=== PATIENT | female | born 1975 | race Caucasian/White ===

== ENCOUNTER 2020-07-26 15:20 | Emergency (ER) | payer OTHER ==
[~2020-07-26] VITALS: Ht 162.6 cm; Wt 59.0 kg
[2020-07-26 15:33] VITALS: BP 137/74
--- NOTE | 2020-07-26 15:41 | NUR ---
CHERI GREENE evaluating pt at bedside
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
[2020-07-26] MEDS ORDERED: MORPHINE SULFATE 4 MG/ML SYR IM ONE (15:50)
--- NOTE | 2020-07-26 15:56 | NUR ---
TO XRAY VIA W/C
[2020-07-26 17:00] VITALS: BP 137/74
--- NOTE | 2020-07-26 18:28 | NUR ---
Patient discharged with v/s stable. Written and verbal after care instructions given and explained. Patient alert, oriented and verbalized understanding of instructions. Ambulatory with steady gait. All questions addressed prior to discharge. ID band removed. Patient advised to follow up with PMD. Rx of NORCO & VOLTAREN given. Patient educated on indication of medication including possible reaction and side effects. Opportunity to ask questions provided and answered.
== END 2020-07-26 18:28 | disposition home or self-care (01) ==
LOC: MED 15:20
DX: M54.2 Cervicalgia (principal); M54.9 Dorsalgia, unspecified
CPT/HCPCS: 72050; 72072; 72110; 81002; 81025; 99284; J2270

== ENCOUNTER 2020-10-24 11:09 | Emergency (ER) | payer OTHER ==
[~2020-10-24] VITALS: Ht 160 cm; Wt 65.8 kg
[2020-10-24 11:14] VITALS: BP 160/96
--- NOTE | 2020-10-24 11:18 | NUR ---
Patient ambulated to bed 12 with assistance. RN evaluating the patient at bedside.
--- NOTE | 2020-10-24 11:35 | NUR ---
45 Y/O F C/O LEFT FOOT DIGIT PAIN / THAT STARTED LAST NIGHT AFTER SHE STATED SHE INJURED IT. TOOK TWO PO TABS OF OTC TYLENOL FOR PAIN, NO RELIEF. UNABLE TO BEAR WEIGHT OR FLEX/EXTEND L FOOT. PT TSTAES PAIN ISNT RADIATING ANYWHERE ELSE, VISIBLE BRUISING ON LEFT FOOT. LMP 09/25/20. LAST BM WAS YESTERDAY, NORMAL AND EASY TO PASS. PMH: STOMACH ULCERS. DENIES ANY SOB, COUGH, CHEST PAIN, OR CONTACT WITH ANYONE POSITIVE FOR COVID.
--- NOTE | 2020-10-24 11:49 | NUR ---
XRAY AT BEDSIDE
[2020-10-24] MEDS ORDERED: ONDANSETRON 4 MG ODT PO ONE (12:05)
[2020-10-24] MEDS ORDERED: HYDROcodone/APAP 5/325 MG 1 TAB TAB PO ONE (12:05)
--- NOTE | 2020-10-24 12:28 | NUR ---
Amara garcia in ED - 10/24/20 at 1228 by MEDR Patient discharged with v/s stable. Written and verbal after care instructions given and explained. Patient verbalized understanding. Ambulatory with steady gait. All questions addressed prior to discharge. Advised to follow up with PMD.
[2020-10-24 12:50] VITALS: BP 160/96
--- NOTE | 2020-10-24 12:51 | NUR ---
Patient discharged with v/s stable. Written and verbal after care instructions given and explained. Patient alert, oriented and verbalized understanding of instructions. Ambulatory with steady gait. All questions addressed prior to discharge. ID band removed. Patient advised to follow up with PMD. Rx of NORCO AND ZOFRAN given. Patient educated on indication of medication including possible reaction and side effects. Opportunity to ask questions provided and answered. CD WAS GIVEN WITH TWO RN SIGNATURES, PT INFORMED TO GO SEE FOOT AND TAKE CD WITH HER FOR TX.
== END 2020-10-24 12:51 | disposition home or self-care (01) ==
LOC: MED 11:09
DX: S92.592A Other fracture of left lesser toe(s), initial encounter for closed fracture (principal); W17.89XA Other fall from one level to another, initial encounter; Y93.89 Activity, other specified; Y92.89 Other specified places as the place of occurrence of the external cause; Y99.8 Other external cause status
CPT/HCPCS: 73630; 99283; Q0162

== ENCOUNTER 2020-10-26 16:42 | Emergency (ER) | payer OTHER ==
[~2020-10-26] VITALS: Ht 162.6 cm; Wt 59.0 kg
--- NOTE | 2020-10-26 16:44 | NUR ---
W/C ASSISTED TO BED 12
[2020-10-26 16:46] VITALS: BP 136/83
[2020-10-26] MEDS: KETOROLAC 30 MG/ML VIAL IM ONE (17:02)
--- NOTE | 2020-10-26 17:03 | NUR ---
Received care of 45 y/o female coming from home c/o rectal pain. Pt broke a toe, was RX with Troy, experiencing constipation after taking Troy.
--- NOTE | 2020-10-26 17:04 | NUR ---
Pt unable to give urine sample prior to administration of Toradol. Pt states she ahd tubal ligation years ago, can't be . S[employer] Eusebio notified, cleared pt for Toradol admin, considering pt's age.
[2020-10-26] MEDS: ONDANSETRON 4 MG/2 ML VIAL IVP ONE (18:00)
[2020-10-26] MEDS: MORPHINE SULFATE 4 MG/ML SYR IVP ONE (18:00)
[2020-10-26 18:09] LABS: BASOPHILS # (AUTO) 0.1 K/uL (0.00-0.22); BASOPHILS % (AUTO) 0.3 % (0.0-2.0); EOSINOPHILS % (AUTO) 0.2 % (0.0-4.0); HEMATOCRIT 36.3 % (36-48); HEMOGLOBIN 12.3 g/dL (12.0-16.0); LYMPHOCYTES # (AUTO) 0.9 K/uL (2.5-16.5); MEAN CORPUSCULAR HEMOGLOBIN 31 pg (27-31); MEAN CORPUSCULAR HGB CONC 34 g/dL (33-37); MEAN CORPUSCULAR VOLUME 90.8 fL (80-94); MONOCYTES % (AUTO) 5.5 % (1.7-9.3); NEUTROPHILS # (AUTO) 16.6 K/uL (1.8-7.7); PLATELET COUNT (AUTO) 324 K/uL (140-450); RED CELL DISTRIBUTION WIDTH 13.6 % (11.6-13.7); WHITE BLOOD COUNT (AUTO) 18.7 K/uL (4.8-10.8)
[2020-10-26 18:19] LABS: ALBUMIN 3.7 g/dL (3.4-5.0); ANION GAP 13.1 (8-16); CARBON DIOXIDE 24.8 mmol/L (21-32); CREATININE 0.6 mg/dL (0.6-1.3); POTASSIUM 3.9 mmol/L (3.5-5.1); TOTAL BILIRUBIN 0.2 mg/dL (0.0-1.0)
[2020-10-26] MEDS ORDERED: cefTRIAXone 1,000 MG VIAL ONE (19:01)
[2020-10-26] MEDS: NACL 0.9% 1,000 ML IV ONE (19:04)
--- NOTE | 2020-10-26 19:24 | NUR ---
HAND-OFF REPORT GIVEN TO JOSE CARLOS ARREDONDO FOR CONTINUATION OF NURSING CARE
--- NOTE | 2020-10-26 19:24 | NUR ---
RECEIVED TRANSFER OF CARE FROM ANN ARREDONDO FOR CONTINUATION OF CARE.
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
--- NOTE | 2020-10-26 19:31 | NUR ---
PT RETURN FROM CT
--- NOTE | 2020-10-26 20:17 | NUR ---
NON-SKID SOCKS APPLIED. PT AMBULATED TO RESTOOM WITH ASSISTANCE.
--- NOTE | 2020-10-26 20:25 | NUR ---
PT AMBULATED BACK TO BED FROM RESTROOM WITH ASSISTANCE.
[2020-10-26 21:10] VITALS: BP 136/86
[2020-10-26] MEDS: SODIUM PHOSPHATE 118 ML ENEM RC STA (21:12)
--- NOTE | 2020-10-26 21:12 | NUR ---
Patient discharged with v/s stable. Written and verbal after care instructions given and explained. Patient alert, oriented and verbalized understanding of instructions. Ambulatory with ASSISTANCE to car. All questions addressed prior to discharge. ID band removed. Patient advised to follow up with PMD. Rx of GNP MILK OF MAGNESIA, FLEET DISPOSABLE RECTAL ENEMA, AND AUGMENTIN given. Patient educated on indication of medication including possible reaction and side effects. Opportunity to ask questions provided and answered.
--- NOTE | 2020-10-26 21:12 | NUR ---
IV removed, catheter intact and site benign. Applied folded 4x4 gauze and tape to stop bleeding.
== END 2020-10-26 21:10 | disposition home or self-care (01) ==
LOC: MED 16:42
DX: K62.89 Other specified diseases of anus and rectum (principal); K59.00 Constipation, unspecified
CPT/HCPCS: 36415; 74018; 74177; 80053; 83690; 85025; 96365; 96372; 96375; 99285; J0696; J1885; J2270; J2405; J7030; J7060; Q9967

== ENCOUNTER 2022-04-30 13:57 | Emergency (ER) | payer OTHER ==
[~2022-04-30] VITALS: Ht 162.6 cm; Wt 65.8 kg
[2022-04-30 14:00] VITALS: BP 131/99
--- NOTE | 2022-04-30 14:10 | NUR ---
C/O 06/20 R FOOT PAIN S/P FALL X LAST NIGHT. PMH: STOMACH ULCER, MIGRAINE
[2022-04-30] MEDS ORDERED: KETOROLAC 30 MG/ML VIAL IM ONE (15:15)
--- NOTE | 2022-04-30 15:31 | NUR ---
PT PLACED IN FABRICATED ORTHO-GLASS RIGHT SHORT LEG SPLINT, WRAPPED WITH 3" OSCAR WRAPS X3. CMS WNL BEFORE AND AFTER. PT ALSO GIVEN CRUTHCES THAT WERE ADJUSTED TO PT'S SIZE AND HIEGHT AND PT SHOWED PROPER DEMONSTRAION ON HOW TO USE CRUTCHES. PT HAD NO FURTHER QUESTIONS.
[2022-04-30] MEDS ORDERED: ACET-8386 PO (15:36)
[2022-04-30] MEDS ORDERED: IBUP-2213 PO (15:36)
[2022-04-30 15:40] VITALS: BP 120/88
--- NOTE | 2022-04-30 15:40 | NUR ---
Patient discharged with v/s stable. Written and verbal after care instructions given and explained. Patient alert, oriented and verbalized understanding of instructions. Ambulatory with CRUTCHES. All questions addressed prior to discharge. ID band removed. Patient advised to follow up with PMD. Rx of NORCO& MOTRIN given. Patient educated on indication of medication including possible reaction and side effects. Opportunity to ask questions provided and answered.
== END 2022-04-30 15:40 | disposition home or self-care (01) ==
LOC: MED 13:57
DX: S92.351A Displaced fracture of fifth metatarsal bone, right foot, initial encounter for closed fracture (principal); G43.909 Migraine, unspecified, not intractable, without status migrainosus; K25.9 Gastric ulcer, unspecified as acute or chronic, without hemorrhage or perforation; X58.XXXA Exposure to other specified factors, initial encounter; Y93.89 Activity, other specified; Y92.89 Other specified places as the place of occurrence of the external cause; Y99.8 Other external cause status
CPT/HCPCS: 29515; 73630; 96372; 99283; J1885

== ENCOUNTER 2023-08-18 13:18 | Inpatient (IN) | payer OTHER ==
[~2023-08-18] VITALS: Ht 162.6 cm; Wt 61.2 kg
[~2023-08-18 13:18] MED LIST: ACET-8905 PO; IBUP-2213 PO
[2023-08-18 13:39] VITALS: BP 151/97; PULSE 85; RESP 20; TEMP 99.6; O2SAT 97
[2023-08-18] MEDS ORDERED: KETOROLAC 30 MG/ML VIAL IVP ONE (13:50)
[2023-08-18] MEDS ORDERED: NACL 0.9% 1,000 ML IV SCH (13:50)
[2023-08-18] MEDS ORDERED: ONDANSETRON 4 MG/2 ML VIAL IVP ONE ×2 (13:50→16:20)
[2023-08-18 14:12] LABS: HEMATOCRIT 42.3 % (36-48); HEMOGLOBIN 14.5 g/dL (12.0-16.0); MEAN CORPUSCULAR HEMOGLOBIN 29 pg (27-31); MEAN CORPUSCULAR HGB CONC 34 g/dL (33-37); MEAN CORPUSCULAR VOLUME 85.7 fL (80-94); PLATELET COUNT (AUTO) 448 K/uL (140-450); RED BLOOD CELL COUNT(AUTO) 4.94 MIL/uL (4.20-5.40)
[2023-08-18 14:15] LABS: APPEARANCE,URINE CLEAR (CLEAR); BILIRUBIN,URINE 1+ (NEGATIVE); BLOOD, URINE 1+ (NEGATIVE); COLOR,URINE YELLOW (YELLOW); LEUKOCYTE ESTERASE ,URINE NEGATIVE (NEGATIVE); NITRITE, URINE NEGATIVE (NEGATIVE); PROTEIN,URINE 3+ (NEGATIVE); UGLUCOSE NEGATIVE (NEGATIVE); UROBILINOGEN,URINE 0.2 EU/dL (0.2 - 1)
[2023-08-18 14:18] LABS: WHITE BLOOD COUNT (AUTO) 27.8 K/uL (4.8-10.8)
[2023-08-18 14:20] LABS: CALCIUM 8.9 mg/dL (8.5-10.1); CARBON DIOXIDE 20.7 mmol/L (21-32)
[2023-08-18 14:22] LABS: POTASSIUM 2.7 mmol/L (3.5-5.1)
[2023-08-18] MEDS ORDERED: KCL 20 MEQ IN 100 mL PREMIX 200 ML IV ONE (14:25)
[2023-08-18 14:26] LABS: ALBUMIN 4.2 g/dL (3.4-5.0); BILIRUBIN,DIRECT 0.1 mg/dL (0.0-0.3); TOTAL BILIRUBIN 0.6 mg/dL (0.0-1.0); TOTAL PROTEIN, SERUM 8.7 g/dL (6.4-8.2)
[2023-08-18 14:30] LABS: BASOPHILS % (MANUAL) 0 % (0-2); BLASTS, MANUAL % 0 % (0-0); EOSINOPHILS % (MANUAL) 0 % (0-4); LYMPHOCYTES % (MANUAL) 9 % (20-46); METAMYELOCYTES % 0 % (0-0); MONOCYTES % (MANUAL) 10 % (5-12); MYELOCYTES % 0 % (0-0); OTHER CELLS,MANUAL % 0 (0-0); PROMYELOCYTES % 0 % (0-0)
[2023-08-18 14:31] LABS: PLATELET ESTIMATE INCREASED
[2023-08-18] MEDS ORDERED: MORPHINE SULFATE 4 MG/ML SYR IVP ONE (14:35)
[2023-08-18 15:06] LABS: LACTIC ACID 2.6 mmol/L (0.4-2.0)
[2023-08-18 16:03] LABS: BACTERIA,URINE 2+ /HPF (None Seen); RBC,URINE 0-5 /HPF (0-5); SQUAMOUS EPITHELIAL CELL,UR 4-10 (MOD) /LPF (0-3 (FEW)); WBC,URINE 0-5 /HPF (0-5)
[2023-08-18] MEDS ORDERED: MORPHINE SULFATE 2 MG/ML SYR IVP STA (16:17)
[2023-08-18] MEDS ORDERED: VANCOMYCIN 1,000 MG in DEXTROSE 5% 250 ML IV ONE (16:45)
[2023-08-18] MEDS ORDERED: PIPERACILLIN/TAZOBACTAM 3.375 GM in DEXTROSE 5% 50 ML IV ONE (16:45)
[2023-08-18] MEDS ORDERED: NACL 0.9% 1,000 ML IV ONE (16:45)
[2023-08-18 16:48] LABS: FLU A ANTIGEN negative (NEGATIVE); FLU B ANTIGEN NEGATIVE (NEGATIVE)
[2023-08-18] MEDS ORDERED: METOCLOPRAMIDE 10 MG/2 ML INJ VIAL IVP ONE (17:05)
[2023-08-18] MEDS ORDERED: diphenhydrAMINE 50 MG/ML VIAL IVP ONE (17:05)
[2023-08-18] MEDS ORDERED: PIPERACILLIN/TAZOBACTAM 3.375 GM VIAL IV ONE (17:20)
[2023-08-18] MEDS ORDERED: OXYB5TAB44 PO (17:59)
[2023-08-18] MEDS ORDERED: MELO-174 PO (17:59)
[2023-08-18] MEDS ORDERED: LORA10TA19 PO (17:59)
[2023-08-18] MEDS ORDERED: ACETAMINOPHEN 325 MG TAB PO PRN (18:25)
[2023-08-18] MEDS ORDERED: VANCOMYCIN PER PHARMACY MC PRN (18:25)
[2023-08-18] MEDS ORDERED: MAG SULF 2000 MG/WATER PREMIX 50 ML IV PRN (18:25)
[2023-08-18] MEDS ORDERED: MAGNESIUM OXIDE 400 MG TAB PO PRN (18:25)
[2023-08-18] MEDS ORDERED: VANCOMYCIN 1,000 MG VIAL ONE (18:30)
[2023-08-18 19:31] VITALS: O2SAT 98
[2023-08-18] MEDS: ONDANSETRON 4 MG/2 ML VIAL IVP PRN (20:50)
[2023-08-18 22:24] VITALS: BP 149/82; PULSE 59; PULSE 60; RESP 18; TEMP 99.9; O2SAT 97; O2SAT 99
[2023-08-18] MEDS ORDERED: cefTRIAXone 1,000 MG VIAL ONE (22:41)
[2023-08-18] MEDS: NACL 0.9% 1,000 ML IV SCH (22:46)
[2023-08-19] MEDS: ONDANSETRON 4 MG/2 ML VIAL IVP PRN ×2 (00:55→06:34)
[2023-08-19 04:00] VITALS: BP 154/71; PULSE 60; PULSE 71; RESP 18; TEMP 98.7; O2SAT 98
[2023-08-19] MEDS: MORPHINE SULFATE 2 MG/ML SYR IVP PRN ×4 (06:35→21:00)
[2023-08-19] MEDS: NACL 0.9% 1,000 ML IV SCH ×2 (06:55→19:59)
[2023-08-19 07:10] LABS: BASOPHILS % (AUTO) 0.1 % (0.0-2.0); HEMATOCRIT 37.2 % (36-48); HEMOGLOBIN 12.6 g/dL (12.0-16.0); LYMPHOCYTES # (AUTO) 1.3 K/uL (2.5-16.5); LYMPHOCYTES % (AUTO) 5.7 % (20.5-51.1); MEAN CORPUSCULAR HEMOGLOBIN 30 pg (27-31); MEAN CORPUSCULAR HGB CONC 34 g/dL (33-37); MEAN CORPUSCULAR VOLUME 87.1 fL (80-94); MONOCYTES # (AUTO) 1.6 K/uL (0.8-1.0); MONOCYTES % (AUTO) 6.9 % (1.7-9.3); NEUTROPHILS # (AUTO) 20.3 K/uL (1.8-7.7); NEUTROPHILS % (AUTO) 87.3 % (42.2-75.2); PLATELET COUNT (AUTO) 353 K/uL (140-450); RED BLOOD CELL COUNT(AUTO) 4.27 MIL/uL (4.20-5.40); WHITE BLOOD COUNT (AUTO) 23.3 K/uL (4.8-10.8)
[2023-08-19 07:27] LABS: ALBUMIN 3.3 g/dL (3.4-5.0); ANION GAP 15.9 (8-16); CALCIUM 7.2 mg/dL (8.5-10.1); CARBON DIOXIDE 21.7 mmol/L (21-32); CREATININE 0.5 mg/dL (0.6-1.3); MAGNESIUM 1.6 mg/dL (1.8-2.4); TOTAL BILIRUBIN 0.4 mg/dL (0.0-1.0); TOTAL PROTEIN, SERUM 7.2 g/dL (6.4-8.2)
[2023-08-19 07:34] LABS: POTASSIUM 2.6 mmol/L (3.5-5.1)
[2023-08-19 08:00] VITALS: BP 135/75; PULSE 68; PULSE 70; PULSE 75; RESP 18; RESP 19; TEMP 98.1; O2SAT 99
[2023-08-19] MEDS ORDERED: VANCOMYCIN 500 MG in NACL 0.9% 100 ML IV SCH ×2 (08:00→12:00)
[2023-08-19 12:00] VITALS: BP 154/71; PULSE 60; PULSE 71; RESP 18; TEMP 98.7; O2SAT 98
[2023-08-19] MEDS: VANCOMYCIN 500 MG in NACL 0.9% 100 ML IV SCH ×2 (12:00→23:52)
[2023-08-19 16:00] VITALS: BP 152/71; PULSE 65; PULSE 70; RESP 18; TEMP 98.7; O2SAT 97
[2023-08-19] MEDS: METOCLOPRAMIDE 10 MG/2 ML INJ VIAL IVP PRN (16:48)
[2023-08-19 20:00] VITALS: BP 142/84; PULSE 70; PULSE 95; RESP 18; TEMP 99.3; O2SAT 98
[2023-08-19] MEDS: TEMAZEPAM 15 MG CAP PO PRN (23:52)
[2023-08-20] VITALS: BP 161/91; PULSE 62; PULSE 70; RESP 18; TEMP 96.6; O2SAT 99
[2023-08-20] MEDS: METOCLOPRAMIDE 10 MG/2 ML INJ VIAL IVP PRN ×3 (02:36→17:07)
[2023-08-20 04:00] VITALS: BP 163/97; PULSE 78; PULSE 94; RESP 18; TEMP 98.6; O2SAT 98
[2023-08-20] MEDS: MORPHINE SULFATE 2 MG/ML SYR IVP PRN ×2 (04:25→10:00)
[2023-08-20 06:36] LABS: BASOPHILS % (AUTO) 0.2 % (0.0-2.0); HEMATOCRIT 36.5 % (36-48); HEMOGLOBIN 12.2 g/dL (12.0-16.0); LYMPHOCYTES # (AUTO) 1.5 K/uL (2.5-16.5); LYMPHOCYTES % (AUTO) 9.9 % (20.5-51.1); MEAN CORPUSCULAR HEMOGLOBIN 29 pg (27-31); MEAN CORPUSCULAR HGB CONC 33 g/dL (33-37); MEAN CORPUSCULAR VOLUME 87.7 fL (80-94); MONOCYTES # (AUTO) 1.4 K/uL (0.8-1.0); MONOCYTES % (AUTO) 9.2 % (1.7-9.3); NEUTROPHILS # (AUTO) 12.1 K/uL (1.8-7.7); NEUTROPHILS % (AUTO) 80.7 % (42.2-75.2); PLATELET COUNT (AUTO) 295 K/uL (140-450); RED BLOOD CELL COUNT(AUTO) 4.16 MIL/uL (4.20-5.40)
[2023-08-20 07:01] LABS: ALBUMIN 2.9 g/dL (3.4-5.0); ANION GAP 14.1 (8-16); CALCIUM 7.4 mg/dL (8.5-10.1); CARBON DIOXIDE 26.5 mmol/L (21-32); CREATININE 0.5 mg/dL (0.6-1.3); TOTAL BILIRUBIN 0.4 mg/dL (0.0-1.0); TOTAL PROTEIN, SERUM 6.7 g/dL (6.4-8.2)
[2023-08-20 07:03] LABS: POTASSIUM 2.6 mmol/L (3.5-5.1)
[2023-08-20] MEDS: NACL 0.9% 1,000 ML IV SCH ×2 (07:59→20:25)
[2023-08-20 08:00] VITALS: BP 154/83; PULSE 57; PULSE 70; RESP 16; TEMP 97.6; O2SAT 100; O2SAT 99
[2023-08-20] MEDS: HYDROcodone/APAP 5/325 MG 1 TAB TAB PO PRN ×3 (11:30→21:52)
[2023-08-20 12:00] VITALS: BP 154/83; PULSE 57; PULSE 67; RESP 19; TEMP 98.1; O2SAT 100
[2023-08-20] MEDS: VANCOMYCIN 500 MG in NACL 0.9% 100 ML IV SCH (12:00)
[2023-08-20] MEDS: PANTOPRAZOLE 40 MG INJ VIAL IVP SCH ×2 (13:00→20:42)
[2023-08-20] MEDS: POTASSIUM CHLORIDE 10 MEQ TABER PO PRN (13:00)
[2023-08-20 16:00] VITALS: BP 148/86; PULSE 61; PULSE 78; RESP 16; TEMP 98.5; O2SAT 98
[2023-08-20 20:00] VITALS: BP_SYST 148; BP_SYST 150; BP_DIAS 80; BP_DIAS 86; PULSE 60; PULSE 75; RESP 16; TEMP 97.6; O2SAT 100
[2023-08-20] MEDS: KCL 20 MEQ IN 100 mL PREMIX 200 ML IV PRN (21:07)
[2023-08-21] VITALS: BP 146/70; PULSE 65; PULSE 66; RESP 16; TEMP 98.3; O2SAT 100
[2023-08-21] MEDS: TEMAZEPAM 15 MG CAP PO PRN ×2 (00:37→21:45)
[2023-08-21] MEDS: MORPHINE SULFATE 2 MG/ML SYR IVP PRN ×4 (03:04→20:17)
[2023-08-21] MEDS: METOCLOPRAMIDE 10 MG/2 ML INJ VIAL IVP PRN ×2 (03:17→10:06)
[2023-08-21 04:00] VITALS: BP 154/85; PULSE 65; PULSE 78; RESP 16; TEMP 98.6; O2SAT 99
[2023-08-21 07:02] LABS: BASOPHILS % (AUTO) 0.4 % (0.0-2.0); EOSINOPHILS % (AUTO) 0.2 % (0.0-4.0); HEMATOCRIT 38.7 % (36-48); HEMOGLOBIN 13.2 g/dL (12.0-16.0); LYMPHOCYTES # (AUTO) 1.7 K/uL (2.5-16.5); LYMPHOCYTES % (AUTO) 16.6 % (20.5-51.1); MEAN CORPUSCULAR HEMOGLOBIN 30 pg (27-31); MEAN CORPUSCULAR HGB CONC 34 g/dL (33-37); MEAN CORPUSCULAR VOLUME 86.7 fL (80-94); MONOCYTES # (AUTO) 0.9 K/uL (0.8-1.0); NEUTROPHILS # (AUTO) 7.7 K/uL (1.8-7.7); NEUTROPHILS % (AUTO) 73.8 % (42.2-75.2); PLATELET COUNT (AUTO) 320 K/uL (140-450); RED BLOOD CELL COUNT(AUTO) 4.47 MIL/uL (4.20-5.40); RED CELL DISTRIBUTION WIDTH 14.8 % (11.6-13.7); WHITE BLOOD COUNT (AUTO) 10.4 K/uL (4.8-10.8)
[2023-08-21 07:30] LABS: ALBUMIN 2.9 g/dL (3.4-5.0); ANION GAP 13.7 (8-16); CALCIUM 7.8 mg/dL (8.5-10.1); CREATININE 0.5 mg/dL (0.6-1.3); MAGNESIUM 2.1 mg/dL (1.8-2.4); TOTAL BILIRUBIN 0.3 mg/dL (0.0-1.0); TOTAL PROTEIN, SERUM 6.8 g/dL (6.4-8.2)
[2023-08-21 07:32] LABS: POTASSIUM 2.7 mmol/L (3.5-5.1)
[2023-08-21 08:00] VITALS: BP 144/88; PULSE 66; PULSE 70; PULSE 89; RESP 16; RESP 17; TEMP 97.8; O2SAT 100; O2SAT 98
[2023-08-21] MEDS: PANTOPRAZOLE 40 MG INJ VIAL IVP SCH ×2 (08:13→20:18)
[2023-08-21] MEDS: VANCOMYCIN 500 MG in NACL 0.9% 100 ML IV SCH ×4 (11:26→23:34)
[2023-08-21] MEDS: KCL 20 MEQ IN 100 mL PREMIX 200 ML IV PRN (11:29)
[2023-08-21] MEDS: HYDROcodone/APAP 5/325 MG 1 TAB TAB PO PRN ×2 (11:52→17:19)
[2023-08-21 12:00] VITALS: BP 125/82; PULSE 67; PULSE 80; RESP 19; TEMP 98; O2SAT 94
[2023-08-21 16:00] VITALS: BP 154/86; PULSE 68; PULSE 74; RESP 19; TEMP 98.8; O2SAT 100
[2023-08-21] MEDS: NACL 0.9% 1,000 ML IV SCH ×2 (19:50→21:25)
[2023-08-21 20:00] VITALS: BP 131/88; PULSE 65; RESP 18; TEMP 98.2; O2SAT 99
[2023-08-22] MEDS: HYDROcodone/APAP 5/325 MG 1 TAB TAB PO PRN ×4 (00:40→18:53)
[2023-08-22 04:00] VITALS: BP 122/81; PULSE 88; RESP 18; TEMP 96; O2SAT 99
[2023-08-22 07:16] LABS: BASOPHILS # (AUTO) 0.1 K/uL (0.00-0.22); BASOPHILS % (AUTO) 0.8 % (0.0-2.0); EOSINOPHILS # (AUTO) 0.1 K/uL (0-0.4); EOSINOPHILS % (AUTO) 0.9 % (0.0-4.0); HEMATOCRIT 38.7 % (36-48); LYMPHOCYTES # (AUTO) 1.6 K/uL (2.5-16.5); LYMPHOCYTES % (AUTO) 15.2 % (20.5-51.1); MEAN CORPUSCULAR HEMOGLOBIN 30 pg (27-31); MEAN CORPUSCULAR HGB CONC 34 g/dL (33-37); MEAN CORPUSCULAR VOLUME 88.3 fL (80-94); MONOCYTES # (AUTO) 1.3 K/uL (0.8-1.0); MONOCYTES % (AUTO) 12.1 % (1.7-9.3); NEUTROPHILS # (AUTO) 7.5 K/uL (1.8-7.7); PLATELET COUNT (AUTO) 334 K/uL (140-450); RED BLOOD CELL COUNT(AUTO) 4.38 MIL/uL (4.20-5.40); RED CELL DISTRIBUTION WIDTH 14.5 % (11.6-13.7); WHITE BLOOD COUNT (AUTO) 10.6 K/uL (4.8-10.8)
[2023-08-22 07:28] LABS: ALBUMIN 2.8 g/dL (3.4-5.0); ANION GAP 10.4 (8-16); CALCIUM 8.1 mg/dL (8.5-10.1); CARBON DIOXIDE 27.6 mmol/L (21-32); CREATININE 0.6 mg/dL (0.6-1.3); TOTAL BILIRUBIN 0.3 mg/dL (0.0-1.0); TOTAL PROTEIN, SERUM 6.8 g/dL (6.4-8.2)
[2023-08-22 08:00] VITALS: BP 137/83; PULSE 69; RESP 20; TEMP 97.7; O2SAT 99
[2023-08-22] MEDS: PANTOPRAZOLE 40 MG INJ VIAL IVP SCH (08:13)
[2023-08-22] MEDS: KCL 20 MEQ IN 100 mL PREMIX 200 ML IV PRN (08:57)
[2023-08-22] MEDS: MORPHINE SULFATE 2 MG/ML SYR IVP PRN (09:13)
[2023-08-22] MEDS: VANCOMYCIN 500 MG in NACL 0.9% 100 ML IV SCH (11:22)
[2023-08-22] MEDS ORDERED: HYOSCYAMINE 0.125 MG TAB PO PRN (12:45)
[2023-08-22] MEDS: METOCLOPRAMIDE 10 MG/2 ML INJ VIAL IVP PRN (13:28)
[2023-08-22 16:00] VITALS: BP 120/83; PULSE 85; RESP 18; TEMP 98.5; O2SAT 99
[2023-08-22 20:00] VITALS: BP 130/96; PULSE 73; RESP 18; TEMP 97.8; O2SAT 97; O2SAT 99
[2023-08-22] MEDS ORDERED: AMITRIPTYLINE 25 MG TAB PO SCH (21:00)
[2023-08-22] MEDS: NACL 0.9% 1,000 ML IV SCH (22:25)
[2023-08-22 22:28] LABS: AMPHETAMINE, URINE NEGATIVE ng/ml (NEG <=1000); BARBITURATE, URINE NEGATIVE ng/ml (NEG <=200)
[2023-08-22 22:29] LABS: BENZODIAZEPINE, URINE POSITIVE ng/mL (NEG <=200); CANNABINOID, URINE POSITIVE ng/mL (NEG <=50); COCAINE, URINE NEGATIVE ng/mL (NEG <=300); OPIATE, URINE POSITIVE ng/mL (NEG <=2000); PHENCYCLIDINE SCREEN,URINE NEGATIVE ng/mL (NEG <=25)
[2023-08-22 23:28] VITALS: BP 143/75; PULSE 85; RESP 18; TEMP 97.8; O2SAT 97
[2023-08-23] MEDS: HYDROcodone/APAP 5/325 MG 1 TAB TAB PO PRN ×2 (00:04→06:11)
[2023-08-23] MEDS: PANTOPRAZOLE 40 MG INJ VIAL IVP SCH ×2 (00:11→08:21)
[2023-08-23] MEDS: TEMAZEPAM 15 MG CAP PO PRN (00:45)
[2023-08-23] MEDS: NACL 0.9% 1,000 ML IV SCH ×2 (06:18→10:15)
[2023-08-23 07:27] LABS: BASOPHILS # (AUTO) 0.1 K/uL (0.00-0.22); BASOPHILS % (AUTO) 0.6 % (0.0-2.0); EOSINOPHILS # (AUTO) 0.1 K/uL (0-0.4); EOSINOPHILS % (AUTO) 1.6 % (0.0-4.0); HEMATOCRIT 37.2 % (36-48); HEMOGLOBIN 12.5 g/dL (12.0-16.0); LYMPHOCYTES # (AUTO) 2.3 K/uL (2.5-16.5); LYMPHOCYTES % (AUTO) 25.8 % (20.5-51.1); MEAN CORPUSCULAR HEMOGLOBIN 30 pg (27-31); MEAN CORPUSCULAR HGB CONC 34 g/dL (33-37); MEAN CORPUSCULAR VOLUME 88.4 fL (80-94); MONOCYTES % (AUTO) 10.8 % (1.7-9.3); NEUTROPHILS # (AUTO) 5.6 K/uL (1.8-7.7); NEUTROPHILS % (AUTO) 61.2 % (42.2-75.2); PLATELET COUNT (AUTO) 346 K/uL (140-450); RED CELL DISTRIBUTION WIDTH 14.6 % (11.6-13.7); WHITE BLOOD COUNT (AUTO) 9.1 K/uL (4.8-10.8)
[2023-08-23 07:52] LABS: ALBUMIN 2.9 g/dL (3.4-5.0); ANION GAP 13.9 (8-16); CALCIUM 8.4 mg/dL (8.5-10.1); CARBON DIOXIDE 26.4 mmol/L (21-32); CREATININE 0.6 mg/dL (0.6-1.3); POTASSIUM 3.3 mmol/L (3.5-5.1); TOTAL BILIRUBIN 0.3 mg/dL (0.0-1.0); TOTAL PROTEIN, SERUM 6.8 g/dL (6.4-8.2)
[2023-08-23] MEDS: POTASSIUM CHLORIDE 10 MEQ TABER PO PRN (08:21)
[2023-08-23 09:02] VITALS: PULSE 85; RESP 18; O2SAT 99
[2023-08-23 09:05] VITALS: BP 132/82; PULSE 85; RESP 18; TEMP 97; O2SAT 97
[2023-08-23] MEDS ORDERED: diphenhydrAMINE 50 MG/ML VIAL ONE (10:01)
[2023-08-23] MEDS ORDERED: fentaNYL citrate 0.05 MG/ML VIAL ONE (10:01)
[2023-08-23] MEDS ORDERED: MIDAZOLAM 2 MG/2 ML VIAL ONE (10:01)
[2023-08-23] MEDS: MIDAZOLAM 2 MG/2 ML VIAL IVP ONE ×2 (10:42→11:17)
[2023-08-23] MEDS: fentaNYL citrate 0.05 MG/ML VIAL IVP ONE ×2 (10:43→11:17)
[2023-08-23] MEDS ORDERED: METOCLOPRAMIDE 10 MG TAB PO SCH (11:30)
[2023-08-23 12:30] VITALS: BP 135/87; PULSE 102; RESP 18; TEMP 98
[2023-08-23] MEDS ORDERED: PANT40EC PO (13:20)
== END 2023-08-23 14:15 | disposition home or self-care (01) | DRG 720 ==
LOC: MED 13:18 → MTU 18:25
PROVIDERS: ADMIT Hospitalist; ATTEND Hospitalist
PROC: 0DB78ZX Excision of Stomach, Pylorus, Via Natural or Artificial Opening Endoscopic, Diagnostic (ICD-10-PCS; principal; 2023-08-23 11:10)
DX: A41.9 Sepsis, unspecified organism (principal); K22.10 Ulcer of esophagus without bleeding; Z20.822 Contact with and (suspected) exposure to COVID-19; K44.9 Diaphragmatic hernia without obstruction or gangrene; Z80.0 Family history of malignant neoplasm of digestive organs; Z80.41 Family history of malignant neoplasm of ovary; Z87.11 Personal history of peptic ulcer disease; A09 Infectious gastroenteritis and colitis, unspecified
CPT/HCPCS: 36415; 71045; 76705; 80048; 80053; 80076; 80202; 80305; 81001; 83605; 83690; 83735; 85025; 86677; 87040; 87081; 87086; 88305; 88312; 96365; 96375; 96376; 99291; C9113; J0696; J1200; J1644; J1885; J2250; J2270; J2405; J2543; J2765; J3010; J3370; J3480; J7030; J7060; J8597; Q0092; Q9967

== ENCOUNTER 2023-12-15 07:24 | Day surgery (SDC) | payer OTHER ==
[~2023-12-15] VITALS: Ht 162.6 cm; Wt 56.7 kg
[~2023-12-15 07:24] MED LIST changes: -ACET-8905 PO; -IBUP-2213 PO; +LORA10TA19 PO; +OXYB5TAB44 PO; +PANT40EC PO
[2023-12-15] MEDS ORDERED: LIDOCAINE 2% 100 MG/5 ML UJET TP ONE (09:00)
[2023-12-15] MEDS ORDERED: fentaNYL citrate 0.05 MG/ML VIAL ONE (09:00)
[2023-12-15] MEDS: fentaNYL citrate 0.05 MG/ML VIAL IVP ONE (09:30)
[2023-12-15] MEDS: LIDOCAINE 2% 100 MG/5 ML UJET TP ONE (09:35)
== END 2023-12-15 10:31 | disposition home or self-care (01) ==
LOC: MOR 07:24 → MMU 07:25 → MOR 10:31
PROVIDERS: ATTEND Internal Medicine Gastroenterology
DX: Z12.11 Encounter for screening for malignant neoplasm of colon (principal); K21.9 Gastro-esophageal reflux disease without esophagitis; K63.5 Polyp of colon; K57.30 Diverticulosis of large intestine without perforation or abscess without bleeding; F41.9 Anxiety disorder, unspecified; F32.A Depression, unspecified; F12.90 Cannabis use, unspecified, uncomplicated; Z87.891 Personal history of nicotine dependence; Z98.51 Tubal ligation status; Z98.890 Other specified postprocedural states
CPT/HCPCS: 45385; J3010

== ENCOUNTER 2024-06-25 06:10 | Emergency (ER) | payer OTHER ==
[~2024-06-25] VITALS: Ht 162.6 cm; Wt 58.1 kg
[2024-06-25 06:22] VITALS: BP 173/89; PULSE 50; RESP 18; TEMP 97.9; O2SAT 100
[2024-06-25] MEDS: HALOPERIDOL IM 5 MG/ML VIAL IVP ONE (06:50)
[2024-06-25] MEDS: NACL 0.9% 1,000 ML IV ONE (06:51)
[2024-06-25] MEDS: KETOROLAC 30 MG/ML VIAL IVP ONE (06:54)
[2024-06-25 07:05] LABS: ANION GAP 19.6 (8-16); CALCIUM 9.2 mg/dL (8.5-10.1); CARBON DIOXIDE 19.8 mmol/L (21-32); CREATININE 0.9 mg/dL (0.6-1.3); POTASSIUM 3.4 mmol/L (3.5-5.1)
[2024-06-25 07:15] LABS: ALANINE AMINOTRANSFERASE 25 U/L (12-78); ALBUMIN 4.1 g/dL (3.4-5.0); ALKALINE PHOSPHATASE 107 U/L (50-136); ASPARTATE AMINOTRANSFERASE 20 U/L (15-37); BILIRUBIN,DIRECT 0.1 mg/dL (0.0-0.3); LIPASE 30 U/L (16-77); MAGNESIUM 1.7 mg/dL (1.8-2.4); PHOSPHORUS 1.4 mg/dL (2.5-4.9); TOTAL BILIRUBIN 0.4 mg/dL (0.0-1.0); TOTAL PROTEIN, SERUM 8.3 g/dL (6.4-8.2)
[2024-06-25 07:23] LABS: BASOPHILS % (AUTO) 0.4 % (0.0-2.0); HEMATOCRIT 42.2 % (36-48); HEMOGLOBIN 14.8 g/dL (12.0-16.0); LYMPHOCYTES # (AUTO) 0.8 K/uL (2.5-16.5); LYMPHOCYTES % (AUTO) 8.9 % (20.5-51.1); MEAN CORPUSCULAR HEMOGLOBIN 33 pg (27-31); MEAN CORPUSCULAR HGB CONC 35 g/dL (33-37); MEAN CORPUSCULAR VOLUME 93.3 fL (80-94); MONOCYTES # (AUTO) 0.6 K/uL (0.8-1.0); MONOCYTES % (AUTO) 7.2 % (1.7-9.3); NEUTROPHILS # (AUTO) 7.2 K/uL (1.8-7.7); NEUTROPHILS % (AUTO) 83.5 % (42.2-75.2); PLATELET COUNT (AUTO) 351 K/uL (140-450); RED BLOOD CELL COUNT(AUTO) 4.52 MIL/uL (4.20-5.40); WHITE BLOOD COUNT (AUTO) 8.7 K/uL (4.8-10.8)
[2024-06-25] MEDS ORDERED: ONDA-188 PO (07:33)
[2024-06-25 08:00] VITALS: TEMP 97.9
[2024-06-25] MEDS: SODIUM PHOS / POTASSIUM PHOS 1 PKT PDR PO ONE (08:36)
[2024-06-25] MEDS: ONDANSETRON 4 MG/2 ML VIAL IVP ONE (09:03)
[2024-06-25 09:35] VITALS: BP 129/65; PULSE 50; RESP 12; O2SAT 100
== END 2024-06-25 09:35 | disposition home or self-care (01) ==
LOC: MED 06:10
DX: R11.2 Nausea with vomiting, unspecified (principal); F12.90 Cannabis use, unspecified, uncomplicated; E83.39 Other disorders of phosphorus metabolism; Z79.899 Other long term (current) drug therapy
CPT/HCPCS: 36415; 80048; 80076; 83690; 83735; 84100; 84484; 85025; 93005; 96374; 96375; 99285; J1630; J1885; J2405; J7030